=== PATIENT | female | born 1955 | race Caucasian/White ===

== ENCOUNTER → 2018-09-16 | Outpatient (CLI) | payer BC ==
--- NOTE | 2018-09-16 14:22 | MM ---
Reason for exam: additional evaluation requested from prior study. Last mammogram was performed 8 years and 8 months ago. History: Patient is postmenopausal and has history of breast cancer at age 52. Excisional biopsy of the left breast, May 19, 2008. Lumpectomy of the left breast, May 19, 2008. Malignant left mammotome panel of the left breast, May 05, 2008. Benign excisional biopsy of the right breast, 2001. Benign excisional biopsy of the right breast, 2000. Taking tamoxifen for 9 months beginning at age 52. Physical Findings: Nurse did not find any significant physical abnormalities on exam. MG Diagnostic Mammo w CAD EDE Bilateral CC and MLO view(s) were taken. Prior study comparison: January 07, 2010, bilateral diagnostic digital mammog. The breast tissue is heterogeneously dense. This may lower the sensitivity of mammography. Finding #1: Architectural distortion in the left breast consistent with known lumpectomy changes. Finding #2: There are typically benign dystrophic, round calcifications in both breasts. No distinct lesion persists on additional views. These results were verbally communicated with the patient and result sheet given to the patient on 09/16/18. ASSESSMENT: Benign, BI-RAD 2 RECOMMENDATION: Follow-up diagnostic mammogram of both breasts in 1 year.
--- NOTE | 2018-09-16 16:56 | BD ---
EXAMINATION TYPE: Axial Bone Density DATE OF EXAM: 09/16/2018 COMPARISON: NONE CLINICAL HISTORY: Personal history of breast cancer. Height: 5 FT 4 IN Weight: 179 FRAX RISK QUESTIONS: History of Fracture in Adulthood: YES Secondary Osteoporosis: 3. Menopause before 45: YES RISK FACTORS HISTORY OF: History of Wrist Fracture: RT When: AGE 32 Active: MODERATE Postmenopausal woman: AGE 45 Lost more than 2 inches in height since high school: YES MEDICATIONS: Additional Medications: NONE Additional History: EXAM MEASUREMENTS: Bone mineral densitometry was performed using the [employer] System. Bone mineral density as measured about the Lumbar spine is: ----- L1-L4(G/cm2): 1.116 T Score Values are as follows: ----- L2: -1.7 ----- L3: -0.7 ----- L4: 0.2 ----- L1-L4: -0.5 LAST BONE DONE AT [facility] Bone mineral density about the R hip (g/cm2): 0.782 Bone mineral density about the L hip (g/cm2): 0.774 T Score values are as follows: -----R Neck: -1.8 -----L Neck: -1.9 -----R Total: -1.8 -----L Total: -1.9 LAST BONE DONE AT [facility] IMPRESSION: Osteopenia (T Score between -2.5 and -1) present femoral neck level in both hips.. There is slightly increased risk of fracture and the patient may be considered for treatment. Re-Screen 2-5 years. NOTE: T-SCORE=SD OF THE YOUNG ADULT MEAN.
== END ==
LOC: RADMAMWWP 13:19
PROVIDERS: ATTEND Family Medicine
DX: Z08 Encounter for follow-up examination after completed treatment for malignant neoplasm (principal); M85.852 Other specified disorders of bone density and structure, left thigh; M85.851 Other specified disorders of bone density and structure, right thigh; Z85.3 Personal history of malignant neoplasm of breast
CPT/HCPCS: 77066; 77080

== ENCOUNTER → 2020-03-15 | Outpatient (CLI) | payer BC ==
--- NOTE | 2020-03-15 08:25 | XR ---
EXAMINATION TYPE: XR Hip Complete LT DATE OF EXAM: 03/15/2020 CLINICAL HISTORY: pain TECHNIQUE: AP and frogleg views of the left hip are obtained. COMPARISON: None. FINDINGS: There is no acute fracture/dislocation evident. The joint space appears mildly narrowed. The overlying soft tissue appears unremarkable. IMPRESSION: 1. There is no acute fracture or dislocation.ICD 10 NO FRACTURE, INITIAL EVALUATION
== END | disposition home or self-care (01) ==
LOC: RADXRMAIN 08:02
PROVIDERS: ATTEND Family Medicine
DX: M25.559 Pain in unspecified hip (principal)
CPT/HCPCS: 73502

== ENCOUNTER → 2021-04-16 | Outpatient (CLI) | payer MEDICARE ==
--- NOTE | 2021-04-18 11:21 | MM ---
Reason for exam: screening (asymptomatic). Last mammogram was performed 2 years and 7 months ago. History: Patient is postmenopausal and has history of breast cancer at age 52. Excisional biopsy of the left breast, May 19, 2008. Lumpectomy of the left breast, May 19, 2008. Malignant left mammotome panel of the left breast, May 05, 2008. Benign excisional biopsy of the right breast, 2001. Benign excisional biopsy of the right breast, 2000. Taking tamoxifen for 9 months beginning at age 52. Physical Findings: A clinical breast exam by your physician is recommended on an annual basis and results should be correlated with mammographic findings. MG 3D Screening Mammo W/Cad Bilateral CC and MLO view(s) were taken. Prior study comparison: September 16, 2018, bilateral MG diagnostic mammo w CAD EDE. The breast tissue is heterogeneously dense. This may lower the sensitivity of mammography. Finding: There are new intermediate concern, suspicious fine, grouped/clustered calcifications in the upper outer quadrant, middle, posterior position of the right breast, 7cm from the nipple. New finding since September 16, 2018. ASSESSMENT: Incomplete: need additional imaging evaluation, BI-RAD 0 RECOMMENDATION: Special view mammogram of the right breast. [facility] will attempt to contact patient to return for supplemental views.
== END | disposition home or self-care (01) ==
LOC: RADMAMWWP 10:03
PROVIDERS: ATTEND Family Medicine
DX: Z12.31 Encounter for screening mammogram for malignant neoplasm of breast (principal); Z78.0 Asymptomatic menopausal state
CPT/HCPCS: 77063; 77067

== ENCOUNTER 2021-04-29 08:13 | Day surgery (SDC) | payer MEDICARE ==
[2021-04-25 10:25] VITALS: BMI 29.1
--- NOTE | 2021-04-29 07:14 | P.GSHP ---
History of Present Illness H&P Date: 04/29/21 CHIEF COMPLAINT: Colon screen HISTORY OF PRESENT ILLNESS: The patient is a 65-year-old female who presents for colon screen. Lower endoscopy was offered for further evaluation and management. PAST MEDICAL HISTORY: Please see list. PAST SURGICAL HISTORY: Please see list. MEDICATIONS: Please see list. ALLERGIES: Please see list. SOCIAL HISTORY: No illicit drug use FAMILY HISTORY: No reports of Crohn disease or ulcerative colitis. REVIEW OF ORGAN SYSTEMS: CONSTITUTIONAL: No reports of fevers or chills. PHYSICAL EXAM: VITAL SIGNS: Stable GENERAL: Well-developed pleasant in no acute distress. HEENT: No scleral icterus. Extraocular movements grossly intact. Moist buccal mucosa. NECK: Supple without lymphadenopathy. CHEST: Unlabored respirations. Equal bilateral excursions. CARDIOVASCULAR: Regular rate and rhythm. Distal 2+ pulses. ABDOMEN: Soft, nontender, nondistended. MUSCULOSKELETAL: No clubbing, cyanosis, or edema. ASSESSMENT: 1. Colon screen. PLAN: 1. Recommend proceeding with a lower endoscopy Past Medical History Past Medical History: Cancer, CVA/TIA, Pneumonia Additional Past Medical History / Comment(s): migraines, left breast cancer, "migraine TIA" History of Any Multi-Drug Resistant Organisms: None Reported Past Surgical History: Adenoidectomy, Breast Surgery, Hysterectomy, Orthopedic Surgery, Tonsillectomy, Tubal Ligation Additional Past Surgical History / Comment(s): RK surgery, ganglion cyst removed left wrist, left breast lumpectomy, left cataract Past Anesthesia/Blood Transfusion Reactions: No Reported Reaction, Unable to Obtain Additional Past Anesthesia/Blood Transfusion Reaction / Comment(s): no family hx of anesthesia issues Smoking Status: Never smoker - Past Family History Mother Family Medical History: No Reported History Medications and Allergies Home Medications Medication Instructions Recorded Confirmed Type Aspirin(Dose Unknown) 1 tab PO DAILY 04/25/21 04/25/21 History Allergies Allergy/AdvReac Type Severity Reaction Status Date / Time No Known Allergies Allergy Verified 04/25/21 10:12
[~2021-04-29 08:13] MED LIST: LACTATED RINGERS 1,000 ML IV SCH
[2021-04-29] MEDS ORDERED: LACTATED RINGERS 1,000 ML IV ONE (08:34)
[2021-04-29 08:37] VITALS: TEMP 97.8
[2021-04-29] MEDS ORDERED: PROPOFOL 10 MG/ML 20 ML VIAL IV ONE (08:50)
[2021-04-29 09:21] VITALS: RESP 16
--- NOTE | 2021-04-29 09:37 | P.PCN ---
Date of Procedure: 04/29/21 Description of Procedure: PREOPERATIVE DIAGNOSIS: Colonoscopy screening. Family history colon polyps POSTOPERATIVE DIAGNOSIS: Colonoscopy screening. Diverticulosis, scattered. OPERATION: Colonoscopy to the cecum, ileocecal valve and appendiceal orifice. SURGEON: Madie Silva MD. ANESTHESIA: MAC. INDICATIONS: The patient is a 65-year-old female who presents for colonoscopy screening. Benefits and risks were described and informed consent was obtained. DESCRIPTION OF PROCEDURE: The patient had undergone Sutab prep. The patient had been brought into the operating room and laid in the left lateral decubitus position. After adequate intravenous sedation, the rectum was examined with 2% lidocaine jelly. No external hemorrhoids were encountered. The rectal tone was within normal limits. No lesions were palpated in the rectal vault. An Olympus colonoscope was advanced until the cecum, ileocecal valve and appendiceal orifice were clearly viewed. The prep was excellent. Scattered diverticulosis was encountered. No colonic polyps were found. No evidence of focal colitis was found. Retroflexion of the scope demonstrated grade 1 internal hemorrhoids without active bleeding or inflammation. The colon was desufflated. The patient had tolerated the procedure well. Withdrawal time was over 6 minutes. FINDINGS: Aronchick preparation quality scale 1 (1-5) Internal hemorrhoids, grade 1 No external prolapsed hemorrhoids. No arteriovenous malformations. No adenomatous polyps. No focal colitis. Stricture of colon at 30 cm from the anal verge with moderate diverticulosis RECOMMENDATIONS: Lower endoscopy in 5 2025 Plan - Discharge Summary New Discharge Prescriptions: Continue Aspirin(Dose Unknown) 1 tab PO DAILY Discharge Medication List Aspirin(Dose Unknown) 1 tab PO DAILY 04/25/21 [History] Follow up Appointment(s)/Referral(s): Mdaie Silva MD [STAFF PHYSICIAN] - As Needed Patient Instructions/Handouts: Diverticulosis Diet (GEN), Diverticulosis (DC) Activity/Diet/Wound Care/Special Instructions: Repeat colonoscopy 5 years, 2025 Discharge Disposition: HOME SELF-CARE
[2021-04-29 09:46] VITALS: BP 163/91; PULSE 96
== END 2021-04-29 10:07 | disposition home or self-care (01) ==
LOC: ORWHC2ENDO 08:13
PROVIDERS: ATTEND Surgery Plastic and Reconstructive Surgery
DX: Z12.11 Encounter for screening for malignant neoplasm of colon (principal); K57.90 Diverticulosis of intestine, part unspecified, without perforation or abscess without bleeding; Z79.82 Long term (current) use of aspirin; Z83.71 Family history of colonic polyps; Z85.3 Personal history of malignant neoplasm of breast; Z86.73 Personal history of transient ischemic attack (TIA), and cerebral infarction without residual deficits
CPT/HCPCS: G0121; J2704

== ENCOUNTER → 2021-05-21 | Outpatient (CLI) | payer MEDICARE ==
--- NOTE | 2021-05-21 11:44 | MM ---
Reason for exam: additional evaluation requested from abnormal screening. Last mammogram was performed 1 month ago. History: Patient is postmenopausal and has history of breast cancer at age 52. Excisional biopsy of the left breast, May 19, 2008. Lumpectomy of the left breast, May 19, 2008. Malignant left mammotome panel of the left breast, May 05, 2008. Benign excisional biopsy of the right breast, 2001. Benign excisional biopsy of the right breast, 2000. Taking tamoxifen for 9 months beginning at age 52. Physical Findings: Nurse did not find any significant physical abnormalities on exam. MG 3D Work Up W/Cad RT CC with magnification, ML with magnification, and ML view(s) were taken of the right breast. Prior study comparison: April 16, 2021, bilateral MG 3d screening mammo w/cad. September 16, 2018, bilateral MG diagnostic mammo w CAD EDE. The breast tissue is heterogeneously dense. This may lower the sensitivity of mammography. Finding: There are typically benign grouped/clustered calcifications in the upper outer quadrant, posterior middle position of the right breast over 4mm, scattered with adjacent benign calcifications in the right breast. No suspicious cluster of microcalcifications in the right breast. These results were verbally communicated with the patient and result sheet given to the patient on 05/21/21. ASSESSMENT: Benign, BI-RAD 2 RECOMMENDATION: Return to routine screening mammogram schedule for both breasts. Back on schedule.
== END | disposition home or self-care (01) ==
LOC: RADMAMWWP 10:16
PROVIDERS: ATTEND Family Medicine
DX: R92.8 Other abnormal and inconclusive findings on diagnostic imaging of breast (principal)
CPT/HCPCS: 77065; G0279; 77061

== ENCOUNTER → 2022-06-19 | Outpatient (CLI) | payer MEDICARE ==
--- NOTE | 2022-06-19 09:44 | BD ---
EXAMINATION TYPE: Axial Bone Density DATE OF EXAM: 06/19/2022 COMPARISON: 09/16/2018 CLINICAL HISTORY: 66 years year old Female. ICD-10 CODE: Z78.0 asymptomatic Height: 64" Weight: 189.8 FRAX RISK QUESTIONS: Alcohol (3 or more units per day): NO Family History (Parent hip fracture): NO Glucocorticoids (More than 3mos): YES, AT AGE 35 SHE HAD A TIA AND WAS ON STEROIDS FOR A FEW WEEKS (Ex: prednisone, prednisolone, methylprednisolone, dexamethasone, and hydrocortisone). History of Fracture in Adulthood: YES, RIGHT WRIST AGE 35 Secondary Osteoporosis: 1. Type 1 Diabetes: NO 2. Hyperthyroidism: NO 3. Menopause before 45: NO 4. Malnutrition: NO 5. Chronic liver disease: NO Rheumatoid Arthritis: NO Current Tobacco Use: NO RISK FACTORS HISTORY OF: Hip Fracture (Right/Left): NO Spine Fracture: NO History of Wrist Fracture: YES, R WRIST When: ABOUT 30+ YEARS AGO Surgery to Spine/Hip(right/left)/Wrist (right/left): NO Family History of Osteoporosis: UNKNOWN Active: YES Diet low in dairy products/other sources of calcium: YES, HAS TO MODERATE DIET DUE TO DIVERTICULITIS Postmenopausal woman: YES Lost more than 2 inches in height since high school: YES Frequent falls: NO Poor Health: YES Hyperparathyroidism: NO Adrenal Insufficiency: NO MEDICATIONS: Prednisone or other steroids: NO` Thyroid Medications: NO Osteoporosis Medications: NO Additional Medications: NO MEDICATIONS OR SUPPLEMENTS Additional History: NONE EXAM MEASUREMENTS: Bone mineral densitometry was performed using the [employer] System. Bone mineral density as measured about the Lumbar spine is: ----- L1-L4(G/cm2): 1.105 T Score Values are as follows: ----- L1: -0.8 ----- L2: -1.5 ----- L3: -0.7 ----- L4: 0.0 ----- L1-L4: -0.6 Bone mineral density has: DECREASED -1.0% since study of: 09/16/2018 Bone mineral density about the R hip (g/cm2): 0.746 Bone mineral density about the L hip (g/cm2): 0.733 T Score values are as follows: -----R Neck: -2.1 -----L Neck: -2.2 -----R Total: -2.0 -----L Total: -1.9 Bone mineral density has: DECREASED -1.7% since study of: 09/16/2018 FRAX%s: The graph provided illustrates a 18.6% chance for a major osteoporotic fx and a 3.4% chance f or the hips probability for fx in 10 years time. IMPRESSION: Osteopenia (T Score between -2.5 and -1). There is slightly increased risk of fracture and the patient may be considered for treatment. Re-Screen 2-5 years. NOTE: T-SCORE=SD OF THE YOUNG ADULT MEAN.
--- NOTE | 2022-06-20 09:00 | MM ---
Reason for Exam: Screening (asymptomatic). Last mammogram was performed 1 year(s) and 2 month(s) ago. Patient History: Menarche at age 11. First Full-Term at age 21. Hysterectomy at age 30. Postmenopausal. Breast cancer, age 52. Tamoxifen for 9 months from age 52 until age 53. 05/19/2008, Lumpectomy on the Left side. 05/19/2008, Excisional Biopsy on the Left side. 2001, Benign Excisional Biopsy on the right side. 2000, Benign Excisional Biopsy on the right side. 05/05/2008, Malignant Core Biopsy on the left side. Prior Study Comparison: 09/16/2018 Bilateral Diagnostic Mammogram, [facility]. 04/16/2021 Bilateral Screening Mammogram, [facility]. 05/21/2021 Right Diagnostic Mammogram, [facility]. Tissue Density: The breast tissue is heterogeneously dense. This may lower the sensitivity of mammography. Findings: Analyzed By CAD. There is no suspicious group of microcalcifications or new suspicious mass in either breast. Stable benign-appearing round calcifications within both breasts. Stable chronic nodularity within the left breast. Overall Assessment: Benign, BI-RAD 2 Management: Screening Mammogram of both breasts in 1 year. A clinical breast exam by your physician is recommended on an annual basis and results should be correlated with mammographic findings. Electronically signed and approved by: Dejon Greenwood D.O.
== END | disposition home or self-care (01) ==
LOC: RADMAMWWP 08:16
PROVIDERS: ATTEND Family Medicine
DX: Z12.31 Encounter for screening mammogram for malignant neoplasm of breast (principal); M85.89 Other specified disorders of bone density and structure, multiple sites; Z78.0 Asymptomatic menopausal state; Z85.3 Personal history of malignant neoplasm of breast; Z98.890 Other specified postprocedural states
CPT/HCPCS: 77063; 77067; 77080

== ENCOUNTER → 2023-07-15 | Outpatient (CLI) | payer MEDICARE ==
--- NOTE | 2023-07-16 20:56 | MM ---
Reason for Exam: Screening (asymptomatic). Last screening mammogram was performed 12 month(s) ago. Patient History: Menarche at age 11. First Full-Term at age 21. Hysterectomy at age 30. Postmenopausal. Breast cancer, age 52. Tamoxifen for 9 months from age 52 until age 53. 05/19/2008, Lumpectomy on the Left side. 05/19/2008, Excisional Biopsy on the Left side. 2001, Benign Excisional Biopsy on the right side. 2000, Benign Excisional Biopsy on the right side. 05/05/2008, Malignant Core Biopsy on the left side. Prior Study Comparison: 04/16/2021 Bilateral Screening Mammogram, [facility]. 05/21/2021 Right Diagnostic Mammogram, [facility]. 06/19/2022 Bilateral MG 3D screening mammo w/cad, [facility]. Tissue Density: The breast tissue is heterogeneously dense. This may lower the sensitivity of mammography. Findings: Analyzed By CAD. Postoperative change redemonstrated on the left with unchanged areas of asymmetric density. There is no suspicious group of microcalcifications or new suspicious mass in either breast. Overall Assessment: Benign, BI-RAD 2 Management: Screening Mammogram of both breasts in 1 year. . Patient should continue monthly self-breast exams. A clinical breast exam by your physician is recommended on an annual basis. This exam should not preclude additional follow-up of suspicious palpable abnormalities. Electronically signed and approved by: Nicki Roger M.D. Radiologist
== END | disposition home or self-care (01) ==
LOC: RADMAMWWP 09:06
PROVIDERS: ATTEND Family Medicine
DX: Z12.31 Encounter for screening mammogram for malignant neoplasm of breast (principal); Z78.0 Asymptomatic menopausal state; Z85.3 Personal history of malignant neoplasm of breast
CPT/HCPCS: 77063; 77067

== ENCOUNTER → 2024-07-18 | Outpatient (CLI) | payer MEDICARE ==
--- NOTE | 2024-07-18 08:29 | MM ---
Reason for Exam: Screening (asymptomatic). Last mammogram was performed 1 year(s) and 1 month(s) ago. Patient History: Menarche at age 11. First Full-Term at age 21. Hysterectomy at age 30. Postmenopausal. Breast cancer, age 52. Tamoxifen for 9 months from age 52 until age 53. 05/19/2008, Lumpectomy on the Left side. 05/19/2008, Excisional Biopsy on the Left side. 2001, Benign Excisional Biopsy on the right side. 2000, Benign Excisional Biopsy on the right side. 05/05/2008, Malignant Core Biopsy on the left side. Prior Study Comparison: 05/21/2021 Right Diagnostic Mammogram, [facility]. 06/19/2022 Bilateral MG 3D screening mammo w/cad, [facility]. 07/15/2023 Bilateral MG 3D screening mammo w/cad, [facility]. Tissue Density: The breasts are heterogeneously dense, which may obscure small masses. Findings: Analyzed By CAD. Stable distortion left breast. Scattered small benign-appearing round calcifications bilaterally are redemonstrated. Benign-appearing vascular calcification bilaterally is again seen. There is no suspicious new group of microcalcifications or new suspicious mass in either breast. Overall Assessment: Benign, BI-RAD 2 Management: Screening Mammogram of both breasts in 1 year. . Patient should continue monthly self-breast exams. A clinical breast exam by your physician is recommended on an annual basis. This exam should not preclude additional follow-up of suspicious palpable abnormalities. Note on Ruby scores and lifetime risk: 1. A Ruby score greater than 3% is considered moderate risk. If this is the case, consider specialist referral to assess eligibility for a risk reducing agent. 2. If overall lifetime risk for the development of breast cancer is 20% or higher, the patient may qualify for future screening with alternating mammogram and breast MRI. [facility], , 07/18/2024 8:26 AM. Electronically signed and approved by: Manolo Figueredo M.D.
== END | disposition home or self-care (01) ==
LOC: RADMAMWWP 08:04
PROVIDERS: ATTEND Family Medicine
DX: Z12.31 Encounter for screening mammogram for malignant neoplasm of breast (principal); R92.333 Mammographic heterogeneous density, bilateral breasts; Z78.0 Asymptomatic menopausal state; Z85.3 Personal history of malignant neoplasm of breast; R92.1 Mammographic calcification found on diagnostic imaging of breast
CPT/HCPCS: 77063; 77067